=== PATIENT | male | born 1955 | race Caucasian/White ===

== ENCOUNTER 2024-07-28 09:21 | Outpatient (CLI) | payer MEDICARE, SELFPAY ==
--- OUTSIDE RECORDS SUMMARY | 2024-07-28 09:39 | XMS_ITS | Data Portability ---
Author Organization [facility], [address] [facility] ([place]) Address [address] 4th [place] [address] Assessment Encounter Date Assessment Date Assessment LastModified by Organization Details LastModified Time 10/10/2023 10/10/2023 SUBJECTIVE: Lawrence returns today in follow-up to discuss his left knee. I last visited with him 12/29/2020 and recommended MRI investigation of his left knee. Unfortunately, he is and his went out of network with us and he has visited with [facility] for treatment recommendations. He has not had any recent trauma. I am asked to see him again at the request of Dr. Li . He denies any fever or chills. He did have an MRI of his left knee that was obtained 01/17/2023 at [facility] that I independently reviewed and interpreted with him that revealed that he does have moderate to severe tricompartmental osteoarthritis with a complex tear involving the posterior horn the medial meniscus with extrusion of the posterior root. He also has a parameniscal cyst. I agree with the findings. Is symptoms have progressed since I saw him last for his left knee. He has previously failed both cortisone and Euflexxa. He was surprised to learn that he actually had both of these. He does not recollect receiving Euflexxa. He rates his pain as 2 on a scale of 1-10 today. He is taking Cosamin ASU but no other supplements. His biggest difficulty today is stair climbing. He describes a burning sensation in his left knee at times. He does require the use of stairs quite a bit during the day. OBJECTIVE: The patient is alert and oriented. The patient is pleasant and cooperative. He has motion of 2 to 124 degrees today. He has no joint line pain to palpation. He does have severe pain with forced flexion. He has no effusion. Neurologic and vascular exam unchanged. RADIOGRAPHS: Films obtained today will be dictated separately. He has moderate to severe varus pattern arthritis that has progressed from previous films. LABORATORY: No pertinent new labs to review today. ASSESSMENT: 1.) Moderate to severe and progressive varus pattern primary osteoarthritis of the left knee. MRI of the left knee from [facility] 01/17/2023 reveals a degenerative tear of the medial meniscus involving the posterior horn and root with severe varus pattern tricompartmental osteoarthritis. He had minimal relief with a cortisone injection provided 08/26/2019. He likewise had minimal benefit from a Euflexxa series completed 06/30/2020. He had an aspirate on one occasion (06/16/2020) that was negative with negative culture, cell count, and crystal analysis. 2.) His , Farzana, is also a patient of mine and the patient works as an occupational therapist at [employer]. PLAN: At this time, I have suggested that he consider turmeric and vitamin E. I have further suggested that we could consider repeat cortisone injection. At this time, he would like to try the supplements and see me back in 6 weeks. We will revisit the topic of a cortisone injection. Ultimately, I think he is going to benefit from a total knee arthroplasty. I also take care of his who is going to see me next week. [email or web address] Not available 10/10/2023 22:04:51 11/28/2023 11/28/2023 SUBJECTIVE: Jose Alberto cotton returns today in follow-up to discuss his left knee. I last visited with him 10/10/2023 and he decided to forego an injection in favor of adding turmeric and vitamin E. He does not feel that he has had a lot of benefit with the additional nutraceuticals. He still describes his pain as 7 on a scale of 1-10 but notably, he says the pain is most notable when he is laying down. This is not necessarily just at night but anytime he is laying down. He is actually able to function at work and is able to climb stairs and do other activities and although he does find it aggravating to do these things, he is able to push through but the most aggravating thing is not being able to lay down. He still describes a burning behavior but denies any other manifestations of lumbar radiculopathy. He is taking occasional Aleve for symptom relief. He rates his pain at night is 10 on a scale of 1-10. He presents today alone OBJECTIVE: The patient is alert and oriented. The patient is pleasant and cooperative. The patient has no pain to palpation across the lumbar spine or paraspinal musculature. They have no pain over the sciatic notch, SI joint, or trochanter bilaterally. There is no irritability with range of motion of either hip. He has full range of motion of both hips. The patient demonstrates negative straight leg raise bilaterally and negative femoral nerve stretch test bilaterally. Left knee exam is relatively unchanged although he has less pain with forced flexion today and a little bit less motion at 2 to 119 degrees. Otherwise, once again, minimal joint line pain to palpation and he has a 1+ effusion of the left knee today. RADIOGRAPHS: No new films obtained today. LABORATORY: No pertinent new labs to review today. ASSESSMENT: 1.) Moderate to severe and progressive varus pattern primary osteoarthritis of the left knee. MRI of the left knee from [facility] 01/17/2023 reveals a degenerative tear of the medial meniscus involving the posterior horn and root with severe varus pattern tricompartmental osteoarthritis. He had minimal relief with a cortisone injection provided 08/26/2019. He likewise had minimal benefit from a Euflexxa series completed 06/30/2020. He had an aspirate on one occasion (06/16/2020) that was negative with negative culture, cell count, and crystal analysis. 2.) He may have some concurrent lumbar radiculopathy by description but nothing clinically to support this. 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 PLAN: At this time, I have suggested that we consider a cortisone injection since it has been more than 4 years since he last had one. After some discussion, he is willing to pursue this as he does not necessarily want to consider surgery just yet. Under sterile technique and with the patient's verbal consent after discussion of risks, benefits and potential complications, I injected the left knee joint with 80 milligrams of Depo-Medrol and 2 mL of 0.5 percent Marcaine. The patient tolerated the procedure without adverse event. Post-injection instructions were provided. He is going to follow-up with my physicians assistant, Ruba Santiago in 3 months for reassessment. [email or web address] Not available 11/28/2023 14:18:08 03/24/2024 03/24/2024 Chief complaint: Follow-up for left knee osteoarthritis History of present illness: Patient is a 68-year-old male with a known history of left knee osteoarthritis who comes in today for follow-up on his left knee. He previously saw Dr. Chan on November 28, 2023. He received an intra-articular corticosteroid injection at that visit. He states it took approximately 2 weeks for the injection to work but he states that currently he is having no pain or problems with his knee. He states that his injection has helped 100% of his pain. He states occasionally he will get twinges of pain in his knee but it is not consistent or activity related. he states he previously had pain at night that prevented him from sleeping. He says that pain has subsided and he is able to sleep without difficulty now. Overall he is thrilled with results of the injection. He is here today for further evaluation. Physical exam: Patient is a 68-year-old male in no acute distress who is well-dressed well-nourished and shows appropriate mood and affect. His left knee is without any ecchymosis or erythema. Patient is slightly tender to palpation along the medial joint line. Range of motion of the knee is 0 to about 120 degrees. Hip range of motion does not produce pain. Sensation is intact distally. No foot drop is noted on exam. There is mild stress testing at 0 and 30 degrees are stable. Tomy is positive for pain to medial side. Anterior drawer is negative. X-ray: No pertinent x-rays to review today Laboratory: No pertinent laboratory findings to review today Assessment:1.) Moderate to severe and progressive varus pattern primary osteoarthritis of the left knee. MRI of the left knee from [facility] 01/17/2023 reveals a degenerative tear of the medial meniscus involving the posterior horn and root with severe varus pattern tricompartmental osteoarthritis. He had minimal relief with a cortisone injection provided 08/26/2019. He likewise had minimal benefit from a Euflexxa series completed 06/30/2020. He had an aspirate on one occasion (06/16/2020) that was negative with negative culture, cell count, and crystal analysis. 2.) He may have some concurrent lumbar radiculopathy by description but nothing clinically to support this. 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 Plan: Plan was discussed with the patient today. Overall patient is doing very well with his left knee today. We did discuss the possibility of repeat intra-articular corticosteroid injection patient does not wish to proceed with that as he is doing so well today. He will follow-up with us on an as-needed basis. He was instructed that he may receive an injection to his knees once every 3 months if she repeated. Patient did voice understanding. He will contact us with further questions or concerns. [email or web address] Not available 03/24/2024 16:49:18 Plan of Treatment Reminders Order Date Submit Date Provider Last Modified By Organization Details Last Modified Time Details Appointments None record ed. Lab None record ed. Referral None record ed. Procedures None record ed. Surgeries None record ed. Imaging None record ed. Medication Orders None record ed. Patient TargetsNo targets recorded. Patient InstructionsNo instructions recorded. Reason for Referral None Reported. Results Created Date Observation Date Name Description Value Unit Range Abnormal Flag Note LastModifiedBy Organization Detail LastModifiedTime 10/14/19 24 10/10/2023 XR, knee, 4 or more view [address] [address] Teleph bok [phone] Name: Lawrence Duarte [id number] Exam Date: 2023 Age: 68 Physic amina: Pierce braden MD, Payam : 1955 Examin ation: XR KNEE 4 VIEWS LEFT EXAM: 4 views of the left knee. HISTOR Y: Left knee pain. FINDIN GS: 4 views of the left knee includ ing a standi ng AP, tunnel , latera l, and mercha nt view reveal some slight medial compar tment where sugges ting mild varus patter n arthri tis. There is modera te patell ofemor al arthri tis noted on the mercha nt view. This has slight ly progre ssed from previo us compar shruthi films 06/17/19 21. There is some undula tion of the latera l compar tment of the joint space appear s well-m aintai jennifer. There may be some mild chondr ocalci nosis. No eviden ce of avascu lar necros is or acute fractu re. IMPRES [place]: Mild and slight ly progre ssive varus patter n arthri tis of the left knee as descri bed above. Electr onical ly signed in Short cribe by: Payam Pelayo i, MD on:10/13 12:59 PM cc: Page PAGE 1 of [facility] 1 INTERFACE Sc Only - [facility] [address] [place] [address], [id number], 10/14/2023 14:02:55 07/08/19 25 08/29/2020 imagi ng/di agnos tic resul t No observ ation record ed. [email or web address] Not Available 01:25:50 07/08/19 25 12/26/2020 imagi ng/di agnos tic resul t No observ ation record ed. [email or web address] Not Available 01:25:53 Result Notes None recorded. Problems Name Problem SNOMED Code Status Onset Date Resolution Date Notes Provider Name and Address Organization Details Recorded Time Osteoarthri tis of left knee joint 5885604491010 09 Active 2023 Derick Gonzales om [facility] 4 15:27:28 Derangement of medial meniscus of left knee 7024902032576 08 Active 2023 Payam Chan MD [address] [place], [address], [facility] 4 22:02:21 Lumbar radiculopat hy 910745827 Active 2023 Payam Chan MD [address] , [place], [address], [facility] 4 14:13:57 Problem Notes None recorded. Procedures Surgical History Date Name Laterality Status Provider Name and Address Organization Details Recorded Time 11/28/19 24 SC Knee injection completed Payam Chan MD [address] [place] [address], [phone], [facility] 11/28/2023 14:18:23 Colonoscopy with biopsy completed Not Available Health Note 10/08/2023 16:44:04 Imaging Results Imaging Date Name Status LastModified by Organiz ation Details LastModified Time 10/10/2023 XR, knee, 4 or more view completed INTERFACE Sc Only - [facility] [address] [place] [address], [address], 10/14/2023 14:02:55 08/29/2020 imaging/diag nostic result completed Information not available 07/07/2024 01:25:50 12/26/2020 imaging/diag nostic result completed Information not available 07/07/2024 01:25:53 Procedure Notes None recorded. Medical Equipment None Reported. Allergies No known drug allergies Medications Name Sig Start Date Stop Date Status Note LastModified by Organization Details LastModified Time atorvastatin 10 mg tablet active Not Available Not Available Not Available lisinopril 20 mg tablet active Not Available Not Available No t Available Vitals Date Recorded Body height Provider Name an d Address Organization Details Last Updated DateTime 10/10/[address] [facility] 10/10/2023 16:46:47 Social History Question Answer Notes LastModified by Organizat ion Details LastModified Time Do You Have An Advance Directive? No [email or web address] Information not available 10/08/2023 What Is Your Level Of Caffeine Consumption? Occasional [email or web address] Information not available 10/08/2023 How Many Times Per Week Do You Exercise? 1-2 Times Per Week [email or web address] Information not available 10/08/2023 When Did You Quit Smoking? 2006 [email or web address] Information not available 10/08/2023 Do You Have A Medical Power Of Runner Worker? No [email or web address] Information not available 10/08/2023 What Was The Date Of Your Most Recent Tobacco Screening? 10/10/2023 [email or web address] Information not available 10/08/2023 What Is Your Relationship Status? [email or web address] Information not available 10/08/2023 Sex: Unknown Functional Status Question Answer Note LastModified by Organizat ion Details LastModified Time How many times per week do you consume alcohol? 3-4 times per week [email or web address] Information not available 10/08/2023 Do you use any illicit or recreational drugs? No [email or web address] Information not available 10/08/2023 What is your level of alcohol consumption? Occasional [email or web address] Information not available 10/08/2023 Are you currently employed? 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 Occasional [email or web address] Information not available 10/08/2023 Mental Status None recorded. Family History Relationship Description Onset Age of this Age Resolved Age Notes LastModified by Organization Details LastModified Time Mother Hypertensive disorder [email or web address] Not available 2023 16:44:02 Father Hypertensive disorder [email or web address] Not available 2023 16:44:03 Medical History Condition Response High Blood Pressure Y COPD N Depression N Anxiety Disorder N Arthritis N Cancer N Stroke N Fibromyalgia N Kidney Disease N Attention-deficit Hyperactivity Disorder N Thyroid Problems N Anemia N Diabetes N Bleeding Disorder N Hyperlipidemia N Asthma N Seizures N Heart Disease N Osteoporosis N Past Encounters Encounter ID Performer Location Encounter Start Date Encounter Closed Date Diagnosis/Indication Diagnosis SNOMED-CT Code Diagnosis ICD10 Code Diagnosis Note [id number] MD Carie Vicente [facility] ([place]) [address] Floor, [place] [address] 10/10/2023 15:41:04 10/14/2023 12:33:46 Osteoarthritis of left knee joint 8600765878 13381 M17.12 Derangemen t of medial meniscus of left knee 8156737416 39212 M23.008 [id number] MD Carie Vicente [facility] ([place]) [address], [place] [address] 11/28/2023 13:37:13 12/02/2023 09:23:25 Derangement of medial meniscus of left knee 7568063870 87070 M23.204 Osteoarthr itis of left knee joint 3393555013 44803 M17.12 Lumbar radiculopathy 128 117675 M54.16 [id number] Shannon Hair PA-C [facility] ([place]) [address], [place] [address] 03/24/2024 16:03:53 03/25/2024 06:48:38 Osteoarthritis of left knee joint 7540848332 49006 M17.12 Derangemen t of medial meniscus of left knee 8899367524 21756 M23.204 Health Concerns Section Related Observation LastModified by Organization Detai ls LastModified Time None Recorded Concern Status LastModified by Organization Details LastModified Time None Recorded Advance Directives Directive N: Payers Insurance Date Sequence Insurance Name Policy Number Policy Alcala Covered Member ID Alcala Member ID Guarantor Name 05/05/2024 1 [facility]: ([facility] [id number] Lawrence Duarte [id number] Lawrence Duarte 03/24/2024 SELF PAY REQUESTED Lawrence Duarte 07/22/2024 1 [place] Lawrence Duarte [id number] Lawrence Duarte Notes Date Note Type Note Provider Name and Address Organization Details Recorded Time 10/10/2023 text/html Lawrence Pulido a 68 year oldmalepresenting for care. Payam Chan MD [address] [place] [address], [phone], [facility] 10/10/2023 22:05:19 11/28/2023 text/html Lawrence Pulido a 68 year oldmalepresenting for care. Payam Chan MD [address] [place] [address], [phone], [facility] 11/28/2023 14:19:12
--- OUTSIDE RECORDS SUMMARY | 2024-07-28 09:39 | XMS_ITS | Clinical Summary ---
Author Organization [facility] Address [address] [place] [address] Care Team Providers Care Sales Marketing Manager Name Role Phone Alice Ortiz MD Primary Care P rovider Allergies No known active allergies Medications lisinopril 20 MG tablet Take 20 mg by mouth daily. Active atorvastatin 10 MG tablet Take 10 mg by mouth nightly at bedtime. Active aspirin 81 MG chewable tablet Chew 81 mg by mouth daily. Active Multiple Vitamin (DAILY VITAMIN FORMULA OR) Active Hospital, Clinic, or Other Facility Administered Medication Ordered Dose Route Frequency Start Date End Date Status triamcinolone acetonide (KENALOG-40) injection 40 mgIndications:Plantar fasciitis 40 mg Subtenon Once 12/31/2022 Active Active Problems No known active problems Social History Tobacco Use Types Packs/Day Years Used Date Smoking Tobacco: Former Smokeless Tobacco: Never Comments:quit 14 years ago Alcohol Use Standard Drinks/Week Comments Yes 0 (1 standard drink = 0.6 oz pur e alcohol) socially only Sex and Gender Information Value Date Recorded Sex Assigned at Not on file Legal Sex Male 2:26 PM [employer] Gender Identity Not on file Sexual Orientation Not on file Last Filed Vital Signs Vital Sign Reading Time Taken Comments Blood Pressure 105/55 06/20/2020 1:49 PM CDT Pulse 57 06/20/2020 1:49 PM CDT Temperature 36.5 C (97.7 F) 06/20/2020 11:26 AM CDT Respiratory Rate 16 06/20/2020 1:49 PM CDT Oxygen Saturation 95% 06/20/2020 1:49 PM CDT Inhaled Oxygen Concentration - - Weight 97.5 kg (215 lb) 12/31/2022 1:43 PM CDT Height 167.6 cm (5' 6 ) 12/31/2022 1:43 PM CDT Body Mass Index 34.7 12/31/2022 1:43 PM CDT Plan of Treatment Health Maintenance Due Date Last Done Comments Hepatitis C 1974 DTaP, Tdap and Td Vaccines ( 1 - Tdap) 09/20/1975 Pneumococcal Vaccine: 50+ Years (1 of 1 - PCV) 2006 Zoster Vaccines (1 of 2) 2006 COVID-19 Vaccine (3 - 2023-2 5 season) 2023 04/14/2020, 03/22/2020 Colorectal Cancer Screening Colonoscopy (10 Years) 06/20/2030 06/20/2020 RSV Immunization or 60+ Years (1 - 1-dose 75+ series) 09/20/2031 Meningococcal B Vaccine Aged Out No l onger eligible based on patient's age to complete this topic Meningococcal Vaccine Aged Out No naun sumanth eligible based on patient's age to complete this topic RSV Immunizations Under 20 Months Aged Out No longer eligible b ased on patient's age to complete this topic Insurance Care Teams Sales Marketing Manager Relationship Specialty Start Date End Date Alice Ortiz MD [address] [place] [address] PCP - General FAMILY PRACTICE 05/05/20
[2024-07-28 09:42] LABS: Basophils Absolute Auto 0.08 K/mm3 (0.00-0.10); Basophils Percent Auto 1.1 % (0.0-1.0); Eosinophils Absolute Auto 0.39 K/mm3 (0.02-0.50); Eosinophils Percent Auto 5.2 % (1.0-6.0); Hemoglobin 14.8 g/dL (12.4-15.3); Immature Granulocyte Absolute 0.02 K/mm3 (0.00-0.00); Immature Granulocyte Percent A 0.3 % (0.0-0.0); Lymphocytes Absolute Auto 2.64 K/mm3 (1.10-4.50); Lymphocytes Percent Auto 35.4 % (18.0-42.0); Mean Corpuscular HGB Conc 32.9 g/dL (32-36); Mean Corpuscular Hemoglobin 29.6 pg (27.0-31.0); Monocytes Absolute Auto 0.81 K/mm3 (0.10-0.90); Monocytes Percent Auto 10.9 % (2.0-11.0); Neutrophils Absolute Auto 3.52 K/mm3 (1.70-7.20); Neutrophils Percent Auto 47.1 % (50.0-70.0); Platelet Count Result 269 K/mm3 (150-420); Red Cell Distribution Width 12.2 % (11.6-14.4); White Blood Count 7.5 K/mm3 (4.8-10.8)
[2024-07-28 10:01] LABS: Hemoglobin A1C 5.5 % (<5.7)
[2024-07-28 10:04] LABS: Alanine Aminotransferase 28 U/L (6-50); Albumin Level 4.3 g/dL (3.5-5.1); Alkaline Phosphatase 82 U/L (38-126); Anion Gap 3 mmol/L (4-12); Aspartate Amino Transferase 28 U/L (17-59); Bilirubin,Total 0.8 mg/dL (0.2-1.3); Blood Urea Nitrogen 18 mg/dL (9-20); Calcium 9.5 mg/dL (8.4-10.2); Carbon Dioxide 28 mmol/L (22-30); Chloride 105 mmol/L (98-107); Cholesterol 195 mg/dL (0-200); Estimated Glomerular Filt Rate > 60; Glucose 103 mg/dL (65-110); HDL Direct 58 mg/dL; LDL Cholesterol Calculated 102 mg/dL (<130); Osmolality Calculated 283 mOsm/kg (285-295); Potassium 4.5 mmol/L (3.4-5.0); Sodium 136 mmol/L (137-145); Total Protein 7.3 g/dL (6.3-8.2); Triglycerides 175 mg/dL (<150)
[2024-07-28 12:44] LABS: Prostate Specific Antigen 2.8 ng/mL (< OR = 4.0)
== END 2024-07-28 09:22 | disposition home or self-care (01) ==
LOC: CHSLAB 09:26
PROVIDERS: PCP Family Medicine; Visit Provider Family Medicine
DX: I10 Essential (primary) hypertension (principal); E11.9 Type 2 diabetes mellitus without complications; E03.9 Hypothyroidism, unspecified; R35.1 Nocturia; Z12.5 Encounter for screening for malignant neoplasm of prostate
CPT/HCPCS: 36415; 80053; 80061; 83036; 84153; 84443; 85025; G0103